=== PATIENT | female | born 1955 | race Hispanic/Latino ===

== ENCOUNTER 2016-12-12 02:47 | Emergency (ER) | payer OTHER ==
[2016-12-12 02:47] VITALS: BMI 23.9
[2016-12-12 03:04] VITALS: TEMP 98.6
[2016-12-12 04:14] LABS: BASO # 0.04 K/mm3 (0.0-2.0); BASO % 0.4 % (0.0-3.0); EOS # 0.1 (0.0-0.7); EOS % 0.7 % (1.5-5.0); GRAN # 6.21 (1.4-6.5); GRAN % 62.6 % (50.0-68.0); LYMPH # 2.9 (1.2-3.4); LYMPH % 29.5 % (22.0-35.0); MEAN CORPUSCULAR HEMOGLOBIN 31.2 pg (25.0-35.0); MEAN CORPUSCULAR HGB CONC 34.7 g/dl (31.0-37.0); MEAN PLATELET VOLUME 11.3 fl (7.0-11.0); MONO # 0.7 (0.1-0.6); MONO % 6.8 % (1.0-6.0); RED CELL DISTRIBUTION WIDTH 12.7 % (11.5-14.5); WHITE BLOOD COUNT 9.9 10^3/ul (4.5-11.0)
[2016-12-12] MEDS ORDERED: Sodium Chloride 0.9% 1,000 ML IV SCH (04:15)
[2016-12-12 04:17] LABS: ALB/GLOB RATIO 1.3 (1.1-1.8); ALKALINE PHOSPHATASE 82 U/L (38-126); ALT/SGPT 26 U/L (7-56); AST/SGOT 30 U/L (14-36); BILIRUBIN,TOTAL 0.6 mg/dL (0.2-1.3); BLOOD UREA NITROGEN 6 mg/dL (7-21); CALCIUM 9.5 mg/dL (8.4-10.5); CARBON DIOXIDE 26 mmol/L (21-33); CHLORIDE 101 mmol/L (98-107); GFR AFRICAN-AMERICAN > 60; GLUCOSE,RANDOM 127 mg/dL (70-110); POTASSIUM 3.7 mmol/L (3.6-5.0); SODIUM 142 mmol/L (132-148); TOTAL PROTEIN 8.2 g/dL (5.8-8.3)
[2016-12-12 04:29] LABS: TROPONIN I < 0.01 ng/mL
--- NOTE | 2016-12-12 05:00 | ED PDOC ---
Arrival/HPI - General Chief Complaint: Dizziness/Lightheaded Time Seen by Provider: 12/12/16 03:20 Historian: Patient - History of Present Illness Narrative History of Present Illness (Text): 12/12/16 03:29 61 year old female, whose medical history includes breast cancer, presents to the emergency department complaining of dehydration and dizziness that began this afternoon. Patient states her blood pressure maybe high due to her being agitated. Patient denies any pain, fever, chills, chest pain, shortness of breath, nausea, vomiting, diarrhea, urinary symptoms, back pain, neck pain, headache, or any other complaints. PMD: Dr. Chaves Time/Duration: Other (this afternoon) Symptom Onset: Sudden Symptom Course: Unchanged Context: Home Past Medical History - Provider Review Nursing Documentation Reviewed: Yes - Tetanus Immunization Tetanus Immunization: Unknown - Hematological/Oncological Hx Cancer: Yes (BREAST) - Psychiatric Hx Depression: No Hx Emotional Abuse: No Hx Physical Abuse: No Hx Substance Use: No - Suicidal Assessment Feels Threatened In Home Enviroment: No Family/Social History - Physician Review Nursing Documentation Reviewed: Yes Family/Social History: No Known Family HX Smoking Status: n Hx Alcohol Use: No Hx Substance Use: No Allergies/Home Meds Allergies/Adverse Reactions: Allergies codeine Allergy (Verified 12/12/16 02:54) RASH Penicillins Allergy (Verified 12/12/16 02:54) RASH Sulfa (Sulfonamide Antibiotics) Allergy (Verified 12/12/16 02:54) RASH Tetanus Vaccines and Toxoid Allergy (Verified 12/12/16 02:54) RASH Review of Systems - Physician Review All systems were reviewed & negative as marked: Yes - Review of Systems Constitutional: absent: Fevers, Other (Chills) Respiratory: absent: SOB Cardiovascular: absent: Chest Pain Gastrointestinal: Other (dehydration). absent: Diarrhea, Nausea, Vomiting Genitourinary Female: absent: Dysuria, Frequency, Hematuria Musculoskeletal: absent: Back Pain, Neck Pain Neurological: Dizziness. absent: Headache Physical Exam Vital Signs Temp Pulse Resp BP Pulse Ox 12/12/16 05:50 76 17 203/106 H 97 12/12/16 02:54 98.6 F 84 18 196/98 H 99 Temperature: Afebrile Blood Pressure: Hypertensive Pulse: Regular Respiratory Rate: Normal Appearance: Positive for: Well-Appearing, Non-Toxic, Comfortable Pain Distress: None Mental Status: Positive for: Alert and Oriented X 3 - Systems Exam Head: Present: Atraumatic, Normocephalic Pupils: Present: PERRL Extroacular Muscles: Present: EOMI Conjunctiva: Present: Normal Mouth: Present: Moist Mucous Membranes Neck: Present: Normal Range of Motion Respiratory/Chest: Present: Clear to Auscultation, Good Air Exchange. No: Respiratory Distress, Accessory Muscle Use Cardiovascular: Present: Regular Rate and Rhythm, Normal S1, S2. No: Murmurs Abdomen: Present: Normal Bowel Sounds. No: Tenderness, Distention, Peritoneal Signs Back: Present: Normal Inspection Upper Extremity: Present: Normal Inspection. No: Cyanosis, Edema Lower Extremity: Present: Normal Inspection. No: Edema Neurological: Present: GCS=15, CN II-XII Intact, Speech Normal Skin: Present: Warm, Dry, Normal Color. No: Rashes Psychiatric: Present: Alert, Oriented x 3, Normal Insight, Normal Concentration Medical Decision Making ED Course and Treatment: 12/12/16 03:29 Impression: 61 year old female presents complaining of dehydration and dizziness that began this afternoon. Plan: -- Head CT -- Labs -- Chest X-ray -- Ativert -- IV Fluids -- Zofran inj -- Reassess and disposition Progress Notes: CXR Impression: As read by me, no pneumothorax, no pneumonia, no cardiomegaly, no infiltrates EKG shows NSR at 81 BPM with Interpreted by me. 12/12/16 05:[address] Leaving Against Medical Advice (AMA): The patient is choosing to leave against medical advice. I have personally explained to the patient that choosing to do so may result in permanent bodily harm or . I have discussed at great length that without further evaluation and monitoring there may be unforeseen circumstances and/or deterioration causing permanent bodily harm or as a result of their choice. The patient is alert, oriented, and shows the mental capacity to make clear decisions regarding the patients health care at this time. The patient continues to wish to leave against medical advice. In light of the patients decision to leave against medical advice, the patient is aware of the importance to following up as instructed. The patient has been advised that they should return to the emergency room immediately if they change their mind at any time, or if their condition begins to change or worsen in any way. - Lab Interpretations Lab Results: 12/12/16 03:45 12/12/16 03:45 Lab Results 12/12/16 03:45: Sodium 142, Potassium 3.7, Chloride 101, Carbon Dioxide 26, Anion Gap 19, BUN 6 L, Creatinine 0.8, Est GFR ( Amer) > 60, Est GFR (Non -Af Amer) > 60, Random Glucose 127 H, Calcium 9.5, Total Bilirubin 0.6, AST 30, ALT 26, Alkaline Phosphatase 82, Lactate Dehydrogenase 523, Total Creatine Kinase 80, Troponin I < 0.01, Total Protein 8.2, Albumin 4.6, Globulin 3.6, Albumin/Globulin Ratio 1.3 12/12/16 03:45: WBC 9.9, RBC 4.78, Hgb 14.9, Hct 43.0, MCV 90.0, MCH 31.2, MCHC 34.7, RDW 12.7, Plt Count 239, MPV 11.3 H, Gran % 62.6, Lymph % (Auto) 29.5, [place] % (Auto) 6.8 H, Eos % (Auto) 0.7 L, Baso % (Auto) 0.4, Gran # 6.21, Lymph # 2.9, [place] # 0.7 H, Eos # 0.1, Baso # 0.04 I have reviewed the lab results: Yes - RAD Interpretation Radiology Orders: 12/12/16 03:21 HEAD W/O CONTRAST [CT] Stat CHEST PORTABLE [RAD] Stat - Medication Orders Current Medication Orders: Discontinued Medications Hydrochlorothiazide (Microzide) 12.5 mg PO STAT STA Stop: 12/12/16 05:57 Last Admin: 12/12/16 06:11 Dose: 12.5 mg Sodium Chloride (Sodium Chloride 0.9%) 1,000 mls @ 100 mls/hr IV .Q10H JESSA Last Admin: 12/12/16 04:31 Dose: 100 mls/hr eMAR Start Stop Document 12/12/16 04:31 RD (Rec: 12/12/16 04:31 RD [id number]) Intravenous Solution Start Date 12/12/16 Start Time 04:31 Meclizine HCl (Antivert) 25 mg PO STAT STA Stop: 12/12/16 04:16 Last Admin: 12/12/16 04:31 Dose: 25 mg Ondansetron HCl (Zofran Inj) 4 mg IVP STAT STA Stop: 12/12/16 03:23 Last Admin: 12/12/16 03:49 Dose: 4 mg IVP Administration Document 12/12/16 03:49 RD (Rec: 12/12/16 03:49 RD [id number]) Charges for Administration # of IVP Administrations 1 - Scribe Statement The provider has reviewed the documentation as recorded by the Scribe Golden Chang All medical record entries made by the Scribe were at my direction and personally dictated by me. I have reviewed the chart and agree that the record accurately reflects my personal performance of the history, physical exam, medical decision making, and the department course for this patient. I have also personally directed, reviewed, and agree with the discharge instructions and disposition. Disposition/Present on Arrival - Present on Arrival Any Indicators Present on Arrival: No History of DVT/PE: No History of Uncontrolled Diabetes: No Urinary Catheter: No History of Decub. Ulcer: No History Surgical Site Infection Following: None - Disposition Have Diagnosis and Disposition been Completed?: Yes Diagnosis: Hypertension Disposition: AGAINST MEDICAL ADVICE Disposition Time: 05:30 Condition: UNKNOWN Discharge Instructions (ExitCare): Hypertensive Crisis (ED) Additional Instructions: Thank you for letting us take care of you today. Your provider was Dr. Montero. You were treated for dizziness and hypertension. The emergency medical care you received today was directed at your acute symptoms. If you were prescribed any medication, please fill it and take as directed. It may take several days for your symptoms to resolve. Return to the Emergency Department if your symptoms worsen, do not improve, or if you have any other problems. Please contact your doctor or call one of the physicians/clinics you have been referred to that are listed on the Patient Visit Information form that is included in your discharge packet. Bring any paperwork you were given at discharge with you along with any medications you are taking to your follow up visit. Our treatment cannot replace ongoing medical care by a primary care provider (PCP) outside of the emergency department. Thank you for allowing the [facility] team to be part of your care today. YOU SIGNED OUT AGAINST MEDICAL ADVICE. PLEASE FOLLOW UP WITH YOUR PRIMARY DOCTOR SOON POSSIBLE FOR A BLOOD PRESSURE CHECK AND RE-EVALUATION. IF YOU HAVE ANY CONCERNS OR YOUR SYMPTOMS WORSEN, PLEASE RETURN TO THE EMERGENCY ROOM IMMEDIATELY. Prescriptions: hydroCHLOROthiazide [Microzide] 12.5 mg PO DAILY #7 cap Referrals: Skyler Chaves MD [Primary Care Provider] - Follow up with primary Forms: [employer] (Macedonian)
[2016-12-12 05:51] VITALS: BP 203/106; PULSE 76; RESP 17; O2SAT 97
--- NOTE | 2016-12-12 14:25 | CARD ---
APPROVED REPORT EKG Measurement Heart [id number] <Conclusion> Normal sinus rhythm Normal ECG
== END 2016-12-12 06:12 | disposition left against medical advice (07) ==
LOC: ED 02:47
DX: I10 Essential (primary) hypertension (principal)
CPT/HCPCS: 80053; 82550; 83615; 84484; 85025; 93005; 96374; 99285; J2405; J7040